=== PATIENT | female | born 1955 | race Caucasian/White ===

== ENCOUNTER → 2017-11-03 | Outpatient (CLI) | payer MEDICARE, OTHER ==
[~2017-11-03] MED LIST: ALEVE220 M2 PO; ALEVE220 MG PO; ASPIR 8181 M1 PO; ATORVASTATIN CA80 MG PO; CIPROFLOXACIN500 M1 PO; GLUCOPHAGE500 MG PO; HYDROCODON-ACE1 EAC7 PO; LIPITOR20 MG PO; LISINOPRIL5 MG PO; MEDROL DOSEPAK4 MG PO; TIZANIDINE HCL4 MG PO; TYLENOL ARTHRI650 MG PO
== END | disposition home or self-care (01) ==
LOC: CDC 10:12
DX: Z01.810 Encounter for preprocedural cardiovascular examination (principal); M17.11 Unilateral primary osteoarthritis, right knee; R94.31 Abnormal electrocardiogram [ECG] [EKG]
CPT/HCPCS: 93000

== ENCOUNTER 2017-11-10 12:11 | Inpatient (IN) | payer OTHER ==
[~2017-11-10] VITALS: Ht 157.5 cm; Wt 95.6 kg
[2018-01-02] MEDS ORDERED: INVOKANA100 MG PO (09:24)
[2018-01-06 07:35] VITALS: BP 136/81
[2018-01-06 13:49] LABS: HEMATOCRIT 40.3 % (36.0-46.0); MCH 29.9 PG (29.0-34.0); MCHC 32.8 G/DL (30.0-36.0); MCV 91.4 FL (83-99); PLATELET COUNT 299 K/uL (156-360); RBC DIS.WIDTH-CV 12.3 % (11.8-14.6); RBC DIS.WIDTH-SD 41.1 % (39-53); RED BLOOD COUNT 4.41 M/uL (3.80-5.20); WHITE BLOOD COUNT 8.2 K/uL (4.1-10.2)
[2018-01-06 14:03] LABS: HEMOGLOBIN 13.2 G/DL (11.9-15.5)
[2018-01-06 15:15] VITALS: BP 124/63
[2018-01-06 20:00] VITALS: BP 125/56
[2018-01-07 00:13] VITALS: BP 110/55
[2018-01-07 04:18] VITALS: BP 110/65
[2018-01-07 05:48] LABS: HEMATOCRIT 35.1 % (36.0-46.0); HEMOGLOBIN 11.7 G/DL (11.9-15.5); MCV 91.9 FL (83-99)
[2018-01-07 06:30] LABS: CHLORIDE 103 MEQ/L (99-109); CREATININE 0.7 MG/DL (0.6-1.3); GFR ESTIMATE (CALCULATED) > 59 mL/min/; GLUCOSE 166 mg/dL (70-99); SODIUM 138 MEQ/L (136-147); UREA NITROGEN (BUN) 10 mg/dL (9-23)
[2018-01-07 07:46] VITALS: BP 93/52
[2018-01-07 12:26] VITALS: BP 115/55
[2018-01-07 15:51] VITALS: BP 118/56
[2018-01-07 20:39] VITALS: BP 115/57
[2018-01-08 00:12] VITALS: BP 128/64
[2018-01-08 04:00] VITALS: BP 117/79
[2018-01-08 05:19] LABS: HEMATOCRIT 33.8 % (36.0-46.0); HEMOGLOBIN 11.1 G/DL (11.9-15.5); MCV 91.1 FL (83-99)
[2018-01-08 08:03] VITALS: BP 115/56
[2018-01-08] MEDS ORDERED: DOCUSATE SODIU100 MG PO (08:46)
[2018-01-08] MEDS ORDERED: LOVENOX40 MG/0.4 SC (08:46)
[2018-01-08] MEDS ORDERED: ENDOCET 5-3251 EACH PO (08:46)
[2018-01-08 12:04] VITALS: BP 120/59
== END 2018-01-08 15:00 | DRG 470 ==
LOC: 2SOUTH 12:11 → ENRESERV 01-05 22:08 → 2SOUTH 01-06 07:07 → 3WEST 01-06 15:04 → 2SOUTH 01-06 15:42 → 3WEST 01-08 15:00
PROVIDERS: Orthopaedic Surgery
PROC: 0SRC0J9 Replacement of Right Knee Joint with Synthetic Substitute, Cemented, Open Approach (ICD-10-PCS; principal; 2018-01-06)
DX: M17.11 Unilateral primary osteoarthritis, right knee (principal); E11.9 Type 2 diabetes mellitus without complications; I10 Essential (primary) hypertension; R35.1 Nocturia; E78.5 Hyperlipidemia, unspecified; G43.909 Migraine, unspecified, not intractable, without status migrainosus
CPT/HCPCS: 73560; 80048; 82948; 85014; 85018; 85027; C1713; J0131; J0690; J1170; J1650; J2250; J2795; J3010; J7050; Q0175